=== PATIENT | female | born 1960 | race Caucasian/White ===

== ENCOUNTER 2018-01-27 14:29 | Emergency (ER) | payer OTHER ==
[~2018-01-27] VITALS: Ht 162.6 cm; Wt 88.5 kg
[2018-01-27] MEDS ORDERED: METROPOLOL PO (15:05)
[2018-01-27] MEDS ORDERED: LASIX20 MG (15:05)
== END 2018-01-27 18:05 | disposition home or self-care (01) ==
LOC: ER 14:29
DX: M65.812 Other synovitis and tenosynovitis, left shoulder (principal)